=== PATIENT | female | born 1970 | race Caucasian/White ===

== ENCOUNTER 2022-08-10 15:04 | Inpatient (IN) | payer OTHER ==
[~2022-08-10] VITALS: Ht 157.5 cm; Wt 79.1 kg
[2022-08-10 15:54] LABS: BASOPHILS % 0.4 % (0.0-2.0); EOSINOPHILS % 0.1 % (0.0-5.0); LYMPHOCYTES % 11.1 % (20.0-50.0); MEAN CORPUSCULAR HEMOGLOBIN 20.8 pg (28.0-32.0); MEAN CORPUSCULAR VOLUME 68.1 fL (81.0-99.0); MEAN PLATELET VOLUME 8.6 fl (7.4-10.4); MONOCYTES % 7.8 % (2.0-8.0); NEUTROPHILS % 80.6 % (40.0-76.0); PLATELET 351 x1000/uL (130-400); RED BLOOD CELL COUNT 2.21 mill/uL (4.2-5.4); RED CELL DISTRIBUTION WIDTH 18.1 % (11.6-14.6)
[2022-08-10 16:04] LABS: HEMOGLOBIN. 4.6 g/dL (12.0-16.0)
[2022-08-10 16:44] LABS: PROTHROMBIN TIME 10.8 sec (9.6-11.0)
[2022-08-10] MEDS ORDERED: SODIUM CHLORIDE 0.9% 1,000 ML IV ONE (16:45)
[2022-08-10 18:43] LABS: CHLORIDE 108 mEq/L (98-107)
[2022-08-10 18:53] LABS: ETHANOL BLOOD < 10 mg/dL (-10)
[2022-08-10 19:06] LABS: PLATELET ESTIMATE NORMAL
[2022-08-10 21:17] LABS: CLARITY URINE CLOUDY (CLEAR); COLOR URINE YELLOW (YELLOW); KETONES URINE 2+ (NEGATIVE); LEUKOCYTE ESTERASE URINE 1+ (NEGATIVE); NITRITE URINE NEGATIVE (NEGATIVE); OCCULT BLOOD URINE 3+ (NEGATIVE); PROTEIN URINE 1+ (NEGATIVE); SPECIFIC GRAVITY URINE 1.015 (1.005-1.030)
[2022-08-11] VITALS (10 sets, daily range): BP systolic 96–144; BP diastolic 37–80
[2022-08-11] MEDS ORDERED: HYDROCODONE/ACETAMINOPHEN 5/325MG TABLET PO PRN (02:45)
[2022-08-11] MEDS ORDERED: MORPHINE SULFATE 2 MG/ML CPJ (NOT FOR IM USE) IV PRN (02:45)
[2022-08-11] MEDS ORDERED: NALOXONE HCL 0.4MG/ML VIAL IV PRN (03:00)
[2022-08-11] MEDS: SODIUM CHLORIDE 0.9% 1,000 ML IV SCH ×3 (03:06→17:46)
[2022-08-11 07:52] LABS: CHLORIDE 111 mEq/L (98-107)
[2022-08-11 08:05] LABS: TOTAL IRON BINDING CAPACITY 385 ug/dL (250-450)
[2022-08-11 08:13] LABS: BASOPHILS % 0.4 % (0.0-2.0); EOSINOPHILS % 0.6 % (0.0-5.0); LYMPHOCYTES % 20.1 % (20.0-50.0); MEAN CORPUSCULAR HEMOGLOBIN 21.3 pg (28.0-32.0); MEAN CORPUSCULAR VOLUME 67.8 fL (81.0-99.0); MEAN PLATELET VOLUME 8.6 fl (7.4-10.4); MONOCYTES % 8.7 % (2.0-8.0); NEUTROPHILS % 70.2 % (40.0-76.0); PLATELET 275 x1000/uL (130-400); RED BLOOD CELL COUNT 1.79 mill/uL (4.2-5.4); RED CELL DISTRIBUTION WIDTH 18.2 % (11.6-14.6)
[2022-08-11 08:23] LABS: HEMATOCRIT. 12.1 % (36.0-48.0); HEMOGLOBIN. 3.8 g/dL (12.0-16.0)
[2022-08-11] MEDS: IRON SUCROSE COMPLEX 100 MG/5 ML ML IV SCH (10:29)
[2022-08-11 11:12] LABS: *AMPHETAMINES SCREEN URINE NEGATIVE (NEGATIVE); *BARBITURATES SCREEN URINE NEGATIVE (NEGATIVE); *BENZODIAZEPINES SCREEN URINE NEGATIVE (NEGATIVE); *COCAINE SCREEN URINE NEGATIVE (NEGATIVE); CANNABINOID URINE SCREEN NEGATIVE (NEGATIVE); METHADONE URINE SCREEN NEGATIVE (NEGATIVE); OPIATES URINE SCREEN NEGATIVE (NEGATIVE); PHENCYCLIDINE URINE SCREEN NEGATIVE (NEGATIVE)
[2022-08-11] MEDS ORDERED: EPOETIN ALFA-EPBX 10,000 UNIT/ML VIAL SUBCUT NR (12:00)
[2022-08-11] MEDS ORDERED: MEDROXYPROGESTERONE ACETATE 150MG/ML VIAL IM NR (15:00)
[2022-08-11] MEDS: ONDANSETRON HCL 4MG/2ML INJ IV PRN (19:04)
[2022-08-12] VITALS (12 sets, daily range): BP systolic 88–143; BP diastolic 43–78
[2022-08-12] MEDS: SODIUM CHLORIDE 0.9% 1,000 ML IV SCH ×3 (02:42→19:09)
[2022-08-12] MEDS: ACETAMINOPHEN 325MG TABLET PO PRN ×3 (08:24→22:49)
[2022-08-12] MEDS: IRON SUCROSE COMPLEX 100 MG/5 ML ML IV SCH (10:58)
[2022-08-12] MEDS ORDERED: ASCORBIC ACID 250 MG TABLET PO ONE (13:45)
[2022-08-12] MEDS: CYANOCOBALAMIN 100MCG TABLET PO SCH (14:46)
[2022-08-12] MEDS: ASCORBIC ACID 250 MG TABLET PO SCH (14:46)
[2022-08-12] MEDS: FOLIC ACID 1MG TABLET PO SCH (14:46)
[2022-08-12 16:58] LABS: FOLIC ACID (FOLATE) SERUM 8.6 ng/mL (>5.38)
[2022-08-12] MEDS ORDERED: EPOETIN ALFA-EPBX 10,000 UNIT/ML VIAL SUBCUT NR (21:00)
[2022-08-13] VITALS (9 sets, daily range): BP systolic 88–138; BP diastolic 44–78
[2022-08-13] MEDS: SODIUM CHLORIDE 0.9% 1,000 ML IV SCH ×3 (02:47→16:43)
[2022-08-13] MEDS: CYANOCOBALAMIN 100MCG TABLET PO SCH (09:21)
[2022-08-13] MEDS: ASCORBIC ACID 250 MG TABLET PO SCH (09:21)
[2022-08-13] MEDS: FOLIC ACID 1MG TABLET PO SCH (09:21)
[2022-08-13] MEDS: ACETAMINOPHEN 325MG TABLET PO PRN ×2 (09:26→16:43)
[2022-08-13] MEDS: IRON SUCROSE COMPLEX 100 MG/5 ML ML IV SCH (11:24)
[2022-08-13] MEDS: EPOETIN ALFA-EPBX 10,000 UNIT/ML VIAL SUBCUT SCH (20:47)
[2022-08-13] MEDS: HYDROCODONE/ACETAMINOPHEN 5/325MG TABLET PO PRN (20:55)
[2022-08-13] MEDS: ONDANSETRON HCL 4MG/2ML INJ IV PRN (20:55)
[2022-08-14 00:11] VITALS: BP 110/59
[2022-08-14] MEDS: SODIUM CHLORIDE 0.9% 1,000 ML IV SCH ×4 (02:14→18:27)
[2022-08-14 04:00] VITALS: BP 120/60
[2022-08-14 08:13] VITALS: BP 124/57
[2022-08-14 08:29] LABS: CHLORIDE 112 mEq/L (98-107)
[2022-08-14 08:41] LABS: MEAN CORPUSCULAR HEMOGLOBIN 22.6 pg (28.0-32.0); MEAN CORPUSCULAR VOLUME 74.9 fL (81.0-99.0); PLATELET 318 x1000/uL (130-400); RED BLOOD CELL COUNT 1.82 mill/uL (4.2-5.4)
[2022-08-14 09:01] LABS: HEMOGLOBIN 4.1 g/dL (12.0-16.0)
[2022-08-14 09:02] LABS: HEMATOCRIT 13.6 % (36.0-48.0)
[2022-08-14] MEDS: ASCORBIC ACID 250 MG TABLET PO SCH (09:40)
[2022-08-14] MEDS: CYANOCOBALAMIN 100MCG TABLET PO SCH (09:40)
[2022-08-14] MEDS: FOLIC ACID 1MG TABLET PO SCH (09:40)
[2022-08-14] MEDS: ONDANSETRON HCL 4MG/2ML INJ IV PRN ×2 (09:40→18:39)
[2022-08-14] MEDS: HYDROCODONE/ACETAMINOPHEN 5/325MG TABLET PO PRN ×2 (09:41→18:39)
[2022-08-14 12:00] VITALS: BP 120/67
[2022-08-14 15:55] VITALS: BP 140/75
[2022-08-14] MEDS ORDERED: POTASSIUM CHLORIDE INJ 40 MEQ in DEXT 5% WATER 250 ML IV NR (18:00)
[2022-08-14 20:00] VITALS: BP 134/72
[2022-08-14] MEDS: EPOETIN ALFA-EPBX 10,000 UNIT/ML VIAL SUBCUT SCH (21:04)
[2022-08-15] VITALS: BP 125/62
[2022-08-15] MEDS: SODIUM CHLORIDE 0.9% 1,000 ML IV SCH ×3 (02:45→16:55)
[2022-08-15 04:00] VITALS: BP 122/61
[2022-08-15 08:00] VITALS: BP 116/56
[2022-08-15] MEDS: CYANOCOBALAMIN 100MCG TABLET PO SCH (08:35)
[2022-08-15] MEDS: ASCORBIC ACID 250 MG TABLET PO SCH (08:35)
[2022-08-15] MEDS: FOLIC ACID 1MG TABLET PO SCH (08:35)
[2022-08-15 12:00] VITALS: BP 134/65
[2022-08-15] MEDS: HYDROCODONE/ACETAMINOPHEN 5/325MG TABLET PO PRN (14:19)
[2022-08-15 16:00] VITALS: BP 129/69
[2022-08-15] MEDS: IRON SUCROSE COMPLEX 100 MG/5 ML ML IV SCH (16:54)
[2022-08-15 20:00] VITALS: BP 148/55
[2022-08-15] MEDS: EPOETIN ALFA-EPBX 10,000 UNIT/ML VIAL SUBCUT SCH (21:41)
[2022-08-16] VITALS: BP 139/65
[2022-08-16] MEDS: HYDROCODONE/ACETAMINOPHEN 5/325MG TABLET PO PRN ×2 (01:16→20:39)
[2022-08-16] MEDS: SODIUM CHLORIDE 0.9% 1,000 ML IV SCH ×3 (01:23→16:42)
[2022-08-16 04:00] VITALS: BP 118/73
[2022-08-16 06:20] LABS: MEAN CORPUSCULAR HEMOGLOBIN 23.1 pg (28.0-32.0); MEAN CORPUSCULAR VOLUME 77.4 fL (81.0-99.0); MEAN PLATELET VOLUME 8.8 fl (7.4-10.4); PLATELET 311 x1000/uL (130-400); RED BLOOD CELL COUNT 1.95 mill/uL (4.2-5.4); RED CELL DISTRIBUTION WIDTH 19.5 % (11.6-14.6)
[2022-08-16 06:26] LABS: HEMOGLOBIN. 4.5 g/dL (12.0-16.0)
[2022-08-16 06:27] LABS: HEMATOCRIT. 15.1 % (36.0-48.0)
[2022-08-16 08:00] VITALS: BP 128/69
[2022-08-16] MEDS: ASCORBIC ACID 250 MG TABLET PO SCH (09:32)
[2022-08-16] MEDS: CYANOCOBALAMIN 100MCG TABLET PO SCH (09:32)
[2022-08-16] MEDS: FOLIC ACID 1MG TABLET PO SCH (09:32)
[2022-08-16 12:00] VITALS: BP 124/67
[2022-08-16 16:00] VITALS: BP 125/67
[2022-08-16] MEDS: IRON SUCROSE COMPLEX 100 MG/5 ML ML IV SCH (16:42)
[2022-08-16 17:02] LABS: PLATELET ESTIMATE NORMAL
[2022-08-16] MEDS: DOCUSATE SODIUM 250MG CAPSULE PO SCH (18:27)
[2022-08-16 20:00] VITALS: BP 142/73
[2022-08-16] MEDS ORDERED: DOCU250C14 MT (20:00)
[2022-08-16] MEDS ORDERED: FERR325T6 MT (20:00)
[2022-08-16] MEDS: EPOETIN ALFA-EPBX 10,000 UNIT/ML VIAL SUBCUT SCH (20:39)
[2022-08-17] VITALS: BP 115/60
[2022-08-17] MEDS: SODIUM CHLORIDE 0.9% 1,000 ML IV SCH ×2 (02:45→08:20)
[2022-08-17 04:00] VITALS: BP 124/63
[2022-08-17 08:00] VITALS: BP 126/70
[2022-08-17] MEDS: FOLIC ACID 1MG TABLET PO SCH (08:15)
[2022-08-17] MEDS: DOCUSATE SODIUM 250MG CAPSULE PO SCH (08:15)
[2022-08-17] MEDS: CYANOCOBALAMIN 100MCG TABLET PO SCH (08:15)
[2022-08-17] MEDS: ASCORBIC ACID 250 MG TABLET PO SCH (08:15)
[2022-08-17 08:57] VITALS: BP 125/66
[2022-08-17 12:00] VITALS: BP 118/79
[2022-08-17] MEDS ORDERED: LACTULOSE 20G/30ML UDC PO PRN (13:00)
[2022-08-17] MEDS ORDERED: LACTULOSE 20G/30ML UDC PO NR (13:00)
[2022-08-17] MEDS: IRON SUCROSE COMPLEX 100 MG/5 ML ML IV SCH (14:18)
== END 2022-08-17 16:59 | disposition home or self-care (01) | DRG 760 ==
LOC: ER 15:04 → MICUSO 17:45 → ENRESERV 08-11 00:55 → 5EST 08-11 01:42 → 7WST 08-13 14:20
PROVIDERS: ADMIT Internal Medicine; ATTEND Internal Medicine
DX: D25.9 Leiomyoma of uterus, unspecified (principal); E44.1 Mild protein-calorie malnutrition; D64.9 Anemia, unspecified; D50.0 Iron deficiency anemia secondary to blood loss (chronic); N92.0 Excessive and frequent menstruation with regular cycle; Z68.31 Body mass index [BMI] 31.0-31.9, adult
CPT/HCPCS: 36415; 76830; 76856; 80048; 80053; 80305; 80320; 81003; 82607; 82746; 82962; 83540; 83550; 84484; 85025; 85027; 86850; 86900; 86920; 93005; 99291; J0885; J1050; J2270; J2405; J3480; J7030; J7060; G0480